=== PATIENT | female | born 1960 | race Caucasian/White ===

== ENCOUNTER → 2020-03-21 | Day surgery (SDC) | payer BC, OTHER ==
[~2020-03-21] MED LIST: Lactated Ringers 1,000 ML IV SCH; Lactated Ringers 1,000 ML ONE; Lidocaine 1% 4 ML ONE; Lidocaine 1%/Sod Bicarbonate in NS 8.4% 1 ML Syringe IDERM PRN; Propofol 200 MG/20 ML SDV ONE; Sodium Chloride 0.9% 10 ML Syringe FLUSH PRN
--- NOTE | 2020-03-21 08:31 | PCM.PREANE ---
Preanesthetic Assessment - Procedure Proposed Procedure: Screeening colonoscopy - Review of Systems General: No Symptoms Pulmonary: No Symptoms Cardiovascular: No Symptoms Gastrointestinal: No Symptoms Neurological: Headache Other: Reports: None - Physical Assessment NPO Status Date: 03/21/20 (greater than 8 hours) ASA Class: 2 Mental Status: Alert & Oriented x3 Airway Class: Mallampati = 2 Dentition: Reports: Normal Dentition Thyro-Mental Finger Breadths: 3 Mouth Opening Finger Breadths: 3 ROM/Head Extension: Full Lungs: Clear to Auscultation, Normal Respiratory Effort Cardiovascular: Regular Rate, Regular Rhythm - Allergies Allergies/Adverse Reactions: Allergies Allergy/AdvReac Type Severity Reaction Status Date / Time oxycodone Allergy Anaphylactic Verified 07/07/16 15:21 Shock - Anesthesia Plan Pre-Op Medication Ordered: None - Acknowledgements Anesthesia Type Planned: MAC Pt an Appropriate Candidate for the Planned Anesthesia: Yes Alternatives and Risks of Anesthesia Discussed w Pt/Guardian: Yes Pt/Guardian Understands and Agrees with Anesthesia Plan: Yes PreAnesthesia Questionnaire Neurological History: Reports: Migraines (Had discussion with patient about seeing neurology for further assessment of migraine history and treatment.) - CURRENT (IN HOUSE) MEDS Current Meds: Current Medications Lactated Ringer's (Ringers, Lactated) 1,000 mls @ 125 mls/hr IV ASDIRECTED KASSANDRA Stop: 03/21/20 23:00 Lidocaine/Sodium Bicarbonate (Buffered Lidocaine 1% In Ns 8.4%) 0.25 ml IDERM ONETIME PRN PRN Reason: Prior to IV Start Stop: 03/21/20 18:00 Sodium Chloride (Saline Flush) 10 ml FLUSH ASDIRECTED PRN PRN Reason: Keep Vein Open Stop: 03/21/20 18:00
--- NOTE | 2020-03-21 09:47 | PCM.PRNOTE ---
- Free Text/Narrative Note: Date: 03/21/2020 Procedure: screening colonoscopy Endoscopist: Conner Millan MD Findings: Cecum reached with colonoscope. Prep was fair. Irregular mucosa of unknown significance noted at 20 cm from verge near rectosigmoid junction; this was biopsied with forceps and remnant tissue fulgurated. Detailed Report: The patient was taken to the endoscopy suite and placed in left lateral decubitus position. Time out was performed and monitored anesthesia care was initiated. Visual inspection of the anus revealed no abnormality. Digital rectal exam was unremarkable. The lubricated colonoscope was then inserted and advanced all the way to the cecum. The colon was redundant and advancing the scope to the cecum was moderately challenging. The ileocecal valve and appendiceal orifice were visualized. The prep was fair, due to fair amount of effluent with bubbles. On slow withdrawal of the scope, mucosal surfaces were carefully inspected. There was a circumscribed area of slightly raised knobby mucosa, not exactly with the appearance of a polyp, noted near the rectosigmoid junction 20 cm from the anal verge. Forceps were used to obtain a biopsy and the remaining tissue was fulgurated. On retroflexion within the rectum no abnormalities were noted. Air was suctioned prior to removal of the scope. The patient tolerated the procedure well.
--- NOTE | 2020-03-21 10:41 | PCM48HPAN ---
Post Anesthesia Note - EVALUATION WITHIN 48HRS OF ANESTHETIC Vital Signs in Normal Range: Yes Patient Participated in Evaluation: Yes Respiratory Function Stable: Yes Airway Patent: Yes Cardiovascular Function Stable: Yes Hydration Status Stable: Yes Pain Control Satisfactory: Yes Nausea and Vomiting Control Satisfactory: Yes Mental Status Recovered: Yes Vital Signs: Last Vital Signs Temp 36.1 C 03/21/20 07:45 Pulse 78 03/21/20 07:45 Resp 18 03/21/20 07:45 BP 139/79 03/21/20 07:45 Pulse Ox 99 03/21/20 07:45 - COMMENTS/OBSERVATIONS Free Text/Narrative:: Patient recovered well. SpO2 improved as she woke up and was able to breathe more deeply. Recommend she see PCP with possible additional PFT studies and pulmonology referral. SpO2 during case required higher than normal FiO2 requirements than would be typical for a patient with her body habitus. No additional concerns at this time. Patient free to go home when nursing is complete with cares.
== END | disposition home or self-care (01) ==
LOC: JD.SDS 07:35
PROVIDERS: ATTEND Surgery
DX: Z12.11 Encounter for screening for malignant neoplasm of colon (principal); D12.5 Benign neoplasm of sigmoid colon; Z88.5 Allergy status to narcotic agent; Z79.899 Other long term (current) drug therapy; Z98.890 Other specified postprocedural states; Z87.891 Personal history of nicotine dependence
CPT/HCPCS: 45380; J2001; J2704; J7120; 00812